=== PATIENT | male | born 1970 | race Asian ===

== ENCOUNTER 2021-05-31 09:52 | Inpatient (IN) | payer OTHER, SELFPAY ==
[~2021-05-31] VITALS: Ht 198.1 cm; Wt 63.0 kg
[2021-05-31 09:59] VITALS: BP_SYST 155
--- NOTE | 2021-05-31 10:04 | NUR ---
[employer] police department for ok to book. pt now c/o chest pain. triaged complete md at bedside pt in room 5
[2021-05-31 10:13] LABS: BASOPHILS # (AUTO) 0.1 K/uL (0.0-0.2); BASOPHILS % (AUTO) 1.1 % (0.0-2.0); EOSINOPHILS # (AUTO) 0.1 K/uL (0.0-0.4); EOSINOPHILS % (AUTO) 1.1 % (0.0-4.0); HEMATOCRIT 38.8 % (36-54); HEMOGLOBIN 13.1 g/dL (14.0-18.0); LYMPHOCYTES # (AUTO) 1.3 K/uL (1.0-5.5); LYMPHOCYTES % (AUTO) 18.7 % (20.5-51.5); MEAN CORPUSCULAR HEMOGLOBIN 29 pg (27-31); MEAN CORPUSCULAR HGB CONC 34 % (32-36); MEAN CORPUSCULAR VOLUME 86 fL (79.0-98.0); MONOCYTES # (AUTO) 0.4 K/uL (0.0-1.0); MONOCYTES % (AUTO) 5.3 % (1.7-9.3); NEUTROPHILS # (AUTO) 5.1 K/uL (1.8-7.7); NEUTROPHILS % (AUTO) 73.8 % (40.0-70.0); PLATELET COUNT (AUTO) 355 K/uL (130-430); RED BLOOD CELL COUNT(AUTO) 4.53 MIL/uL (4.2-6.2); WHITE BLOOD COUNT (AUTO) 6.9 K/uL (4.8-10.8)
[2021-05-31 10:27] LABS: ANION GAP 8 (5-15); CALCIUM 9.5 mg/dL (8.4-11.0); CHLORIDE 103 mmol/L (98-107); CREATININE 1.24 mg/dL (0.55-1.30); GLUCOSE 220 mg/dL (70-99); POTASSIUM 4.8 mmol/L (3.5-5.1); SODIUM SERUM 137 mmol/L (136-145); UREA NITROGEN, BLOOD 28 mg/dL (8-21)
[2021-05-31 10:36] LABS: ALANINE AMINOTRANSFERASE 20 U/L (12-78); ALBUMIN 4.2 g/dL (3.4-4.8); ASPARTATE AMINOTRANSFERASE 12 U/L (10-37); TOTAL BILIRUBIN 0.3 mg/dL (0.0-1.0)
[2021-05-31 10:42] LABS: GFR AFRICAN AMERICAN 79 mL/min (>90)
--- NOTE | 2021-05-31 10:49 | NUR ---
pt c/o facial nubess and dizzyness md aware ct ordered
[2021-05-31] MEDS ORDERED: CLOP75TA2 PO (10:58)
[2021-05-31] MEDS ORDERED: LISI-652 PO (10:58)
--- NOTE | 2021-05-31 11:06 | NUR ---
TO CT SCAN
--- NOTE | 2021-05-31 12:42 | NUR ---
PT REFUSE INSUILIN FOR BGM OF 200 AND REFUSES TO EAT
[2021-05-31] MEDS ORDERED: ASPIRIN 325 MG TABLET PO ONE (13:15)
--- NOTE | 2021-05-31 13:17 | NUR ---
Admit bed requested Patient will be admitted to care of . Admitted to TELEMETRY unit. Diagnosis CHEST PAIN Inpatient (Yes or No) NO Observation (Yes or No) YES Orientation concerns or request close to nursing station (Yes or No) NO Covid Status NEG On vent or bipap NO Isolation requirements NO Needs a sitter NO From Home (Yes or if No enter name of facility) HOME Requires Dialysis (Yes or No) NO Med Rec Completed (Yes of No) YES
--- NOTE | 2021-05-31 15:00 | NUR ---
Patient signed out by [facility]'s Department for medical clearance. Patient demanding to speak to MD states he does not know why is being detained. 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 Patient no longer wants to speak to me and states " I would like to know in detail what my labs are and I only want to speak to the MD." MD notified.
--- NOTE | 2021-05-31 16:00 | NUR ---
PT REFUSES TO BE ADMITTED TO HOSPITAL UNTIL HE SPEAKS TO MEASURER MACHINE.
--- NOTE | 2021-05-31 16:20 | NUR ---
PT NOW REFUSES TO SIGN AMA
--- NOTE | 2021-05-31 16:48 | NUR ---
Patient will be admitted to care of MARTY MERCHANT. Admitted to TELE unit. Will go to room 116. Belongings list completed. Complete and up to date summary report printed. SBAR report to be given at bedside with opportunity for questions.
[2021-05-31 16:50] VITALS: BP_SYST 138
--- NOTE | 2021-05-31 16:50 | NUR ---
RECEIVED PT FROM SHONDA ISBELL. PT WAS BROUGHT IN POLICE BUT NOT UNDER ARREST. PT STATED HE WANTED TO GO AMA, EXPLAINED POC TO PT AND PT AGREED TO STAY. ZOIE ROJAS ALSO SPOKE WITH PT REGARDING PT'S COMPLAINTS. PT IS AAXO4, RESP E/U, LUNG SOUNDS CTA. ON R/A. NO COUGH OR SOB NOTED. TELEMONITOR IN PLACE NSR HR 75. PT DENIES C/P, PRESSURE AND PALPITATIONS AT THIS TIME. ABODOMEN SOFT, NONTENDER, NONDISTENDED. BOWEL SOUNDS ACTIVE X4 QUADS. DENIES N/V/D/C. DISTAL PULSES NORMAL, NO EDEMA, SKIN WARM AND INTACT. CONTINENT OF BOWEL AND BLADDER, AMBULATES INDEPENDENTLY. PT HAS IV CATH 20G TO RAC. SITE WNL. DRESSING CDI. S/L. PT ORIENTED TO ROOM AND CALL LIGHT. CALL LIGHT WITHIN REACH. BED IN LOWEST POSITION.
--- NOTE | 2021-05-31 16:56 | NUR ---
CONSULTATION PAGED/CALLED Reason for Consultation: [] CHEST PAIN Person Who was Notified: [] DANDRE Consulting Physician: [] DR MENCHACA Mold Repair Technician Specialty: [] CARDIOLOGY Ordering Physician: [] DR MCELROY
[2021-05-31 17:00] VITALS: BP_SYST 138
--- NOTE | 2021-05-31 18:29 | NUR ---
BS 144, NO INSULIN GIVE PER RISS. PT DENIES C/P AND PRESSURE. CALL LIGHT WITHIN REACH.
--- NOTE | 2021-05-31 19:15 | NUR ---
OPENING NOTE ENDORSED CARE FROM DAY SHIFT. PT IS SITTING IN BED ON PHONE, NO APPARENT DISTRESS NOTED AT THIS TIME. PT HAS A FLAT AFFECT WHEN SPEAKING WITH THE NURSE. HE ASKED QUESTIONS ABOUT HIS CARE. BED IS LOWEST POSITION WITH SAFETY PRECAUTIONS IN PLACE. CALL LIGHT WITHIN REACH AND PT EDUCATED ON HOW TO USE IT
[2021-05-31] MEDS ORDERED: LIRA0.6P SQ (19:32)
[2021-05-31] MEDS ORDERED: GLIM4TAB37 PO (19:32)
[2021-05-31] MEDS ORDERED: CARV6.2554 PO (19:33)
[2021-05-31] MEDS ORDERED: LOP600 PO (19:34)
--- NOTE | 2021-05-31 19:42 | NUR ---
ENDORSED ALL CARE SHONDA SÁNCHEZ. ALL QUESTIONS AND CONCERNS ADDRESSED.
[2021-05-31] MEDS ORDERED: CARVEDILOL 6.25 MG TABLET (COREG) PO SCH (21:00)
[2021-05-31] MEDS: lisinopriL 5 MG TABLET PO SCH (21:10)
--- NOTE | 2021-05-31 23:30 | NUR ---
BARBARA GUY CALLED SPOKE WITH DETECTIVE GOINS FROM [facility] DEPARTMENT. THEY WANTED TO KNOW HOW LONG THE PT WOULD BE IN THE HOSPITAL, ENSURING HE WAS NOT LEAVING THIS EVENING. ASKED FOR PTS MEDICAL RECORD NUMBER. WAS INFORMED THEY WOULD MOST LIKELY BE SENDING A FUSE CUTTER OVER TO MONITOR THE PT. Addendum: 05/31/21 at 9485 by Michael Salcedo LVN Shania GOINS
--- NOTE | 2021-05-31 23:50 | NUR ---
PT REFUSED VITALS JAMIE TIMMONS INFORMED NURSE THAT PT REFUSED MIDNIGHT VITALS
--- NOTE | 2021-05-31 23:54 | NUR ---
BARBARA REYNOSO SPOKE WITH DEPUTY GOINS AGAIN. HE WANTS US TO CALL THEM WHEN WE ARE GETTING READY TO DISCHARGE SO THAT THEY CAN ARREST HIM BEFORE BEING ABLE TO LEAVE. THEY WOULD ALSO LIKE FOR US TO WORK ON GETTING HIM MEDICAL CLEARANCE WITH AN "OKAY TO BOOK" FORM. I LET THEM KNOW I WOULD ENDORSE IT TO THE [facility] NURSE AND CHARGE NURSE. Addendum: 06/01/21 at 0003 by Michael Salcedo LVN LALY NUMBER IS [phone]
--- NOTE | 2021-06-01 00:02 | NUR ---
*BEFORE DISCHARGE* CALL BARBARA RUFFIN AT [phone]
--- NOTE | 2021-06-01 06:20 | NUR ---
SHERIFF REYNOSO CALLED THE [facility] DEPARTMENT AT [phone] AND SPOKE WITH OFFICER DAISY. ASKED TO SPEAK WITH DEPUTY GOINS OR SOMEONE ON THE CASE OF THE PT TO UPDATE THEM ON PT STATUS. PT ASKED TO MOVE ROOMS DUE TO HIS NEIGHBOR. WE MOVED PT TO ROOM 109-C. THE OFFICER I SPOKE WITH WAS VERY UNHELPFUL AND ORIGINALLY TOLD ME I NEEDED TO CALL THE [facility] DEPARTMENT DO THIS SITUATION, AFTER RE EXPLAINING THE SITUATION, THE NURSE WAS TOLD TO CALL BACK AT A LATER TIME THERE WAS NOTHING THAT COULD BE DONE.
[2021-06-01 08:00] VITALS: BP_SYST 130
[2021-06-01] MEDS ORDERED: NON-FORMULARY MEDICATION (Liraglutide (Victoza 2-Pak) 1.8 MG) SQ SCH (09:00)
[2021-06-01] MEDS: ASPIRIN 81 MG TAB.CHEW PO SCH (09:49)
[2021-06-01] MEDS: lisinopriL 5 MG TABLET PO SCH ×3 (09:49→21:41)
[2021-06-01] MEDS: CLOPIDOGREL BISULFATE 75 MG TABLET PO SCH ×2 (09:50→09:51)
[2021-06-01] MEDS: CARVEDILOL 6.25 MG TABLET (COREG) PO SCH ×2 (09:50→21:41)
[2021-06-01] MEDS: GEMFIBROZIL 600 MG TABLET (LOPID) PO SCH ×2 (09:53→09:55)
[2021-06-01 12:00] VITALS: BP_SYST 139
[2021-06-01] MEDS: INSULIN REGULAR, HUMAN 100 UNITS/ML, 10 ML VIAL (humuLIN R) SUBCUT PRN ×2 (12:14→23:06)
[2021-06-01 16:00] VITALS: BP_SYST 125
[2021-06-01] MEDS: GLIMEPIRIDE 2 MG TABLET PO SCH (16:53)
--- NOTE | 2021-06-01 17:21 | NUR ---
PATIENT REFUSED INSULIN COVERAGE AND WLL TAKE HIS AMARYL ONLY.STATED I ATE LITTLE LUNCH TODAY.
--- NOTE | 2021-06-01 18:00 | NUR ---
DEPT. CAME TO SEE PATIENT 1600- CAME AND TALKED TO THE PATIENT, PER SHERIFF REN, IF PATIENT WILL BE DISCHARGE TO CALL THEM BEFORE THE PT LEAVE BECAUSE PATIENT NEEDS TO BE ARRESTED. 1700 - PATIENT CALLED AND WANTED TO LEAVE AMA BECAUSE HE HAD AN EMERGENCY. NOTIFIED PATIENT TO WAIT BECAUSE WE WILL INFORM HIS DOCTOR THAT HE WILL LEAVE AMA. SECURITY CAME AND INFORMED THAT PATIENT HAS AN ARREST ORDER AND NEEDS TO BE OUTSIDE OF THE ROOM OF PATIENT TO MONITOR. NOTIFIED BARBARA TENORIO DEPT. AND SAID TO DELAY SIGNING OF AMA BECAUSE THEY WILL COME TO ARREST THE PT. 1800 - DEPT CALLED AND BEEN ON HOLD SEVERAL TIMES ON THE PHONE. THEY CANNOT MAKE DECISION BEC. PT. WANTS TO LEAVE AMA. HE WANTED ME TO GET CLEARANCE FROM M.D BUT I TOLD HIM THAT IT WILL NOT HAPPEN BECAUSE PATIENT IS SCHEDULED FOR STRESS TEST TOMORROW, MEANING THAT HE IS NOT CLEARED TO BE DISCHARGE. COBY WILL COME TO TALK TO PATIENT RE STAYING IN HOSPITAL VERSUS LEAVING AMA BUT HE WILL GO TO [facility] FOR CONTINUATION OF TREATMENT.
--- NOTE | 2021-06-01 19:20 | NUR ---
OPENING NOTE PT IS STANDING IN ROOM WITH [facility]. PT IS NO APPARENT DISTRESS. PT IS VISIBLY UPSET.
--- NOTE | 2021-06-01 19:30 | NUR ---
MANAGER PROCUREMENT ARRIVED AT 1905 TO SPEAK WITH PT ABOUT HIS OPTIONS. AFTER DISCUSSING THE OPTIONS THE PT DECIDED TO REMAIN IN PATIENT TO CONTINUE TO RECEIVE CARE HERE AND A WILL REMAIN BEDSIDE UNTIL HE IS MEDICALLY CLEARED TO BE DISCHARGED THEN ARRESTED.
--- NOTE | 2021-06-01 23:30 | NUR ---
ROUNDS BEDSIDE DRAIN TILER INFORMED NURSE THAT PT HAS BEEN HANDCUFFED TO BED AND PHONE HAS BEEN TAKEN AWAY FROM PT. PT IS CURRENTLY SLEEPING. BED IS IN THE LOWEST POSITION WITH SAFETY PRECAUTIONS IN PLACE. CALL LIGHT WITHIN REACH
[2021-06-02] MEDS: GLIMEPIRIDE 2 MG TABLET PO SCH ×2 (06:56→17:35)
[2021-06-02 07:15] LABS: BASOPHILS # (AUTO) 0.1 K/uL (0.0-0.2); BASOPHILS % (AUTO) 0.8 % (0.0-2.0); EOSINOPHILS # (AUTO) 0.1 K/uL (0.0-0.4); EOSINOPHILS % (AUTO) 1.6 % (0.0-4.0); HEMATOCRIT 39.2 % (36-54); HEMOGLOBIN 13.1 g/dL (14.0-18.0); LYMPHOCYTES % (AUTO) 27.4 % (20.5-51.5); MEAN CORPUSCULAR HEMOGLOBIN 29 pg (27-31); MEAN CORPUSCULAR HGB CONC 34 % (32-36); MEAN CORPUSCULAR VOLUME 85 fL (79.0-98.0); MONOCYTES # (AUTO) 0.6 K/uL (0.0-1.0); MONOCYTES % (AUTO) 8.7 % (1.7-9.3); NEUTROPHILS # (AUTO) 4.5 K/uL (1.8-7.7); NEUTROPHILS % (AUTO) 61.5 % (40.0-70.0); PLATELET COUNT (AUTO) 356 K/uL (130-430); RED BLOOD CELL COUNT(AUTO) 4.62 MIL/uL (4.2-6.2); RED CELL DISTRIBUTION WIDTH 12.7 % (9.0-15.0); WHITE BLOOD COUNT (AUTO) 7.4 K/uL (4.8-10.8)
--- NOTE | 2021-06-02 07:36 | NUR ---
CLOSING NOTE PT IS LYING IN BED, NO APPARENT DISTRESS NOTED AT THIS TIME. PT IS STILL HANDCUFFED TO BED WITH AMUSEMENT EQUIPMENT OPERATOR PRESENT. BED IS LOWEST POSITION WITH SAFETY PRECAUTIONS IN PLACE. CALL LIGHT WITHIN REACH
[2021-06-02 08:00] VITALS: BP_SYST 135
[2021-06-02 08:30] LABS: CALCIUM 9.6 mg/dL (8.4-11.0); CREATININE 1.05 mg/dL (0.55-1.30)
[2021-06-02 09:19] LABS: POTASSIUM 3.5 mmol/L (3.5-5.1)
[2021-06-02] MEDS: GEMFIBROZIL 600 MG TABLET (LOPID) PO SCH (09:31)
[2021-06-02] MEDS: CLOPIDOGREL BISULFATE 75 MG TABLET PO SCH (09:31)
[2021-06-02] MEDS: ASPIRIN 81 MG TAB.CHEW PO SCH (09:31)
[2021-06-02] MEDS: lisinopriL 5 MG TABLET PO SCH (09:32)
[2021-06-02] MEDS: CARVEDILOL 6.25 MG TABLET (COREG) PO SCH (09:33)
[2021-06-02] MEDS: INSULIN REGULAR, HUMAN 100 UNITS/ML, 10 ML VIAL (humuLIN R) SUBCUT PRN ×2 (09:43→12:22)
--- NOTE | 2021-06-02 09:46 | NUR ---
0800 alert, oriented, awake, NPO, awaiting stress test. 0930 back from stress test, got all po meds, "i havent got my plavix x 2days" . On Plavix secondary to stent placed 2017. got his insulin, bs this am, 163 now eating breakfast
[2021-06-02 12:00] VITALS: BP_SYST 124
--- NOTE | 2021-06-02 15:41 | NUR ---
1540 denied chest pain since met today, went for stress test, ischemia (-), seen by rack puller, cleared from this perspective. now awaiting discharge to home written by attending.
[2021-06-02 16:00] VITALS: BP_SYST 143
[2021-06-02 16:50] VITALS: BP_SYST 124
--- NOTE | 2021-06-02 17:46 | NUR ---
1645 seen by the physician covering attending, discharge order back to the detention, written. eating dinner right now, and will be discharged with the officer Shoaib at 1800 tonight, alert, oriented, no complaint of chest pain. decline the blood sugar this time, but did take Amaryl po .
--- NOTE | 2021-06-02 17:59 | NUR ---
1800 hep lock, monitor out, escorted by officer samantha Cramerd, patient discharged to nursing home
--- NOTE | 2021-06-02 21:50 | NUR ---
POLICE OFFICERS CAME: DEPUTY HENRIQUEZ AND DEPUTY REILLY CAME FROM PTS STATION LONGTERM AND STATED THEY DIDNT RECEIVE THE MEDICAL EVALUATION REQUEST BY BOBBIN CLEANER BACK , CHECKED PTS CHART AND FOUND IT , MADE COPY AND PROVIDED IT TO THEM .
== END 2021-06-02 18:00 | DRG 206 ==
LOC: SED 09:52 → STU 11:58
PROVIDERS: ADMIT Family Medicine; ATTEND Family Medicine
DX: M94.0 Chondrocostal junction syndrome [Tietze] (principal); E11.9 Type 2 diabetes mellitus without complications; E78.5 Hyperlipidemia, unspecified; I10 Essential (primary) hypertension; I25.10 Atherosclerotic heart disease of native coronary artery without angina pectoris; Z20.822 Contact with and (suspected) exposure to COVID-19; F41.9 Anxiety disorder, unspecified; Z86.79 Personal history of other diseases of the circulatory system; Z95.5 Presence of coronary angioplasty implant and graft; Z79.899 Other long term (current) drug therapy; Z79.02 Long term (current) use of antithrombotics/antiplatelets
CPT/HCPCS: 36415; 70450-TC; 71045; 76376; 80048; 80053; 82962; 84484; 85025; 93005; 93017; 99285; G0378; J1815